=== PATIENT | female | born 1950 | race Caucasian/White ===

== ENCOUNTER 2021-11-13 21:07 | Emergency (ER) | payer SELFPAY ==
[~2021-11-13] VITALS: Ht 149.8 cm; Wt 54.4 kg
[2021-11-13] MEDS ORDERED: CEPHALEXIN500 M1 PO (22:50)
[2021-11-13] MEDS ORDERED: HYDROCODON-ACE1 EACH PO (22:50)
== END 2021-11-13 23:30 | disposition home or self-care (01) ==
LOC: ED 21:07
DX: S81.012A Laceration without foreign body, left knee, initial encounter (principal); W18.39XA Other fall on same level, initial encounter; Y93.89 Activity, other specified; Y92.89 Other specified places as the place of occurrence of the external cause; Y99.8 Other external cause status